=== PATIENT | female | born 2000 | race Caucasian/White ===

== ENCOUNTER 2020-08-21 20:24 | Emergency (ER) | payer MEDICAID ==
[~2020-08-21] VITALS: Ht 157.5 cm; Wt 65.8 kg
[2020-08-21] MEDS ORDERED: ACETAMINOPHEN 500 MG TABLET ONE (21:23)
[2020-08-21] MEDS ORDERED: IBUPROFEN 600 MG TABLET ONE (21:23)
[2020-08-21] MEDS ORDERED: ACETAMINOPHEN 500 MG TABLET PO ONE (21:30)
[2020-08-21] MEDS ORDERED: IBUPROFEN 600 MG TABLET PO ONE (21:30)
[2020-08-21 21:47] VITALS: BP 104/46
--- NOTE | 2020-08-21 21:56 | NUR ---
PT BIB POV. PT STATES "I THINK I AM HAVING A MISCARRIAGE". PT HAS VAGINAL BLEEDING AND CRAMPING. PT RESTING IN [facility], MONITORING IN PLACE, NADN AT THIS TIME, MEDICATED PER ZENAIDA LEY.
[2020-08-21 22:08] LABS: BASOPHILS % (AUTO) 1 % (0-1); EOSINOPHILS % (AUTO) 1 % (1-7); LYMPHOCYTES % (AUTO) 23 % (22-44); MEAN CORPUSCULAR HEMOGLOBIN 32.8 pg (27.0-34.8); MEAN CORPUSCULAR HGB CONC 34.1 g/dL (32.4-35.8); MEAN PLATELET VOLUME 8.6 fL (7.4-10.4); MONOCYTES % (AUTO) 8 % (2-9); NEUTROPHILS % (AUTO) 68 % (42-75); PLATELET COUNT 240 x10^3/uL (130-400); RED BLOOD COUNT 4.19 x10^6/uL (3.82-5.3); RED CELL DISTRIBUTION WIDTH 13.1 % (9.6-15.2)
[2020-08-21 22:13] LABS: MD NO
[2020-08-21 22:24] LABS: ALBUMIN 3.6 g/dL (3.4-5.0); ANION GAP 6 mmol/L (5-15); CALCIUM 8.4 mg/dL (8.5-10.1); CHLORIDE 110 mmol/L (98-107); CREATININE 0.62 mg/dL (0.55-1.02)
== END 2020-08-21 22:53 | disposition home or self-care (01) ==
LOC: ED 22:47
DX: O20.0 Threatened abortion (principal); R42 Dizziness and giddiness; Z3A.01 Less than 8 weeks gestation of pregnancy
CPT/HCPCS: 36415; 76830; 80048; 82040; 84702; 85025; 86901; 99284